=== PATIENT | male | born 1935 | race Caucasian/White ===

== ENCOUNTER 2021-03-06 16:36 | Inpatient (IN) ==
--- NOTE | 2021-03-06 17:31 | Emergency Department Note ---
HPI General Chief complaint: Weakness Stated complaint: Weakness/ Elevated Creatinine Time Seen by Provider: 03/06/21 17:21 Source: patient Mode of arrival: EMS Limitations: no limitations History of Present Illness HPI Narrative: Narrative: The patient is a 85-year-old male who was sent over from an outside medical facility for abnormal lab test. The patient complains of generalized weakness. EMS crew also stated that he had a bloody bowel movement without syncope or chest pain or fevers or shortness of breath. EMS crew reports that he was noted to have a creatinine of 4 and was sent to the emergency department for further evaluation. Related Data Previous Rx's Medication Instructions Recorded docusate sodium 100 mg capsule 100 mg PO TID #90 cap 07/03/19 polyethylene glycol 3350 17 17 g PO QDAY PRN #850 g 07/03/19 gram/dose oral powder tizanidine 2 mg capsule 2 mg PO BID PRN #60 cap 12/09/19 gabapentin 100 mg capsule 100 mg PO QHS #30 cap 06/08/20 warfarin 5 mg tablet 7.5 mg PO QDAY #45 tab 07/02/20 celecoxib 200 mg capsule 200 mg PO QDAY PRN #30 cap 08/18/20 allopurinol 300 mg tablet 300 mg PO QAM #30 tab 11/03/20 oxybutynin chloride 5 mg tablet 5 mg PO QHS PRN #30 tab 11/09/20 primidone 50 mg tablet 200 mg PO QHS #120 tab 12/14/20 carbidopa 10 mg-levodopa 100 mg See Rx Instructions .ROUTE 02/18/21 tablet .COMPLEX #90 tab fludrocortisone 0.1 mg tablet See Rx Instructions .ROUTE 02/24/21 .COMPLEX #15 tab Allergies Allergy/AdvReac Type Severity Reaction Status Date / Time No Known Allergies Allergy Unknown unknown Verified 11/04/20 09:49 Review of Systems ROS ROS Narrative: Narrative: All systems ED: reviewed and negative except as stated. [facility] Narrative Patient History Narrative: Narrative: Medical/Surgical/Family History All Active Problems (Updated 03/06/21 @ 20:54 by Sharad Gupta DO) Acute renal failure (ARF) (Acute) Hematochezia (Acute) Chronic pain of both hips (Acute) Medicare annual wellness visit, subsequent (Acute) History of esophagogastroduodenoscopy (EGD) (Acute 01/20/20) Herpes zoster (Acute) Constipation (Acute) Status post placement of implantable loop recorder (Chronic) Aortic stenosis (Chronic) Dizziness (Chronic) Congestive heart failure (Chronic) Syncope (Chronic) Seizure disorder (Chronic) Hyperlipidemia (Chronic) Peripheral vascular disease with claudication (Chronic) Hypothyroidism (Chronic) Cataract, nuclear sclerotic, both eyes (Chronic) Dermatochalasis (Chronic) Gout (Chronic) Orthostatic hypotension (Chronic) Aortic stenosis, severe (Chronic) Hypertension (Chronic) Parkinsonian tremor (Chronic) Candidiasis of skin (Chronic) Arthritis, lumbar spine (Chronic) Chronic a-fib (Chronic) Postural hypotension (Chronic) Anticoagulated on Coumadin (Chronic) Dehydration (Acute) Medical History (Updated 03/06/21 @ 20:54 by Sharad Gupta DO) Anticoagulated on Coumadin Aortic stenosis Aortic stenosis, severe Arthritis, lumbar spine Candidiasis of skin Cataract, nuclear sclerotic, both eyes Chronic a-fib Congestive heart failure Dermatochalasis Dizziness Gout Hyperlipidemia Hypertension Hypothyroidism Orthostatic hypotension Parkinsonian tremor Peripheral vascular disease with claudication Postural hypotension Seizure disorder Status post placement of implantable loop recorder Can have for up to 2 yrs. Sinus chan with 14 beat run of [place] at 04/25/11 visit. Syncope Surgical History History of cholecystectomy History of esophagogastroduodenoscopy (EGD) (01/20/20) History of heart bypass surgery (~2006) Family History Mother No problems noted. Father No problems noted. Brother No problems noted. Social History Smoking Status: Former smoker Exam Narrative Narrative: Narrative: General Limitations: no limitations General appearance: Present alert Head Head: Present atraumatic and normocephalic Eye Eye: Present normal appearance, PERRL and EOMI ENT ENT: Present normal exam, normal oropharynx and mucous membranes moist Neck Neck: Present normal inspection, full ROM and trachea midline Chest Chest: Present normal inspection and symmetric chest wall rise Respiratory Respiratory: Present normal lung sounds bilaterally Cardiovascular Cardiovascular: Present regular rate and normal rhythm Adbominal Abdominal: Present soft, tenderness and normal bowel sounds; Absent guarding, rebound, organomegaly and pulsatile mass Rectal Rectal: Present heme (+) stool Extremities Extremities: Present normal inspection and full ROM; Absent tenderness Back Back: Present normal inspection and full ROM; Absent tenderness Neurological Neurological: Present alert, oriented X3, CN II-XII intact, normal gait, motor sensory deficit and reflexes normal Psychiatric Psychiatric: Present normal affect Skin Skin: Present warm (WNL); Absent rash Course Course Course Narrative: 85-year-old male noted to be Hemoccult positive after he had a episode of hematochezia. Imaging and labs show acute renal failure. INR is 2. He did have episodes of hematochezia x1. No pain and no active bleeding currently. CT scan shows diverticulosis. EKG interpretation shows, rate 79, NC interval 215, QRS 84, QTc 473, sinus rhythm, normal axis, no acute ST segment elevation or depression, no STEMI, nonspecific EKG. Work-up is consistent with acute renal failure. I spoke with the hospitalist, dr. molina who has agreed to admit this patient. I spoke with the general surgeon who has agreed to evaluate this patient in consultation for hematochezia. Basic facilitated admission orders placed. Vital Signs Vital signs: Vital Signs Temperature 97.3 F 03/06/21 16:37 Pulse Rate 92 H 03/06/21 16:37 Respiratory Rate 18 03/06/21 16:37 Blood Pressure 165/75 03/06/21 16:37 Pulse Oximetry (%) 97 03/06/21 16:37 Temperature 97.3 F 03/06/21 16:37 Pulse Rate 70 03/06/21 20:05 Respiratory Rate 30 H 03/06/21 20:44 Blood Pressure 155/90 03/06/21 19:01 Pulse Oximetry (%) 98 03/06/21 20:05 [facility] Narrative Medical decision making narrative: Narrative: Lab Data Result diagrams: 03/06/21 18:48 03/06/21 18:48 Labs: Lab Results 03/06/21 03/06/21 03/06/21 Range/Units 18:48 18:48 18:48 WBC 10.1 (4.5-11.0) K/mcL RBC 4.50 L (4.63-6.08) M/mcL Hgb 14.3 (13.7-17.5) g/dL Hct 43.5 (40.1-51.0) % MCV 96.7 (80.0-100.0) fL MCH 31.8 (26.0-34.0) pg MCHC 32.9 (31.0-36.0) g/dL RDW 15.8 H (11.5-14.5) % Plt Count 165 (140-440) K/mcL MPV 10.6 H (7.4-10.4) fL Neut % (Auto) 70.5 (38.0-78.0) % Lymph % (Auto) 21.2 (15.5-49.0) % [place] % (Auto) 7.5 (1.0-12.0) % Eos % (Auto) 0.5 (0.0-7.0) % Baso % (Auto) 0.3 (0.0-2.0) % Lymph # (Auto) 2.14 (1.50-4.80) K/mcL [place] # (Auto) 0.76 (0.10-0.90) K/mcL Eos # (Auto) 0.05 (0.00-0.70) K/mcL Baso # (Auto) 0.03 (0.00-0.30) K/mcL Absolute Neutrophils 7.12 (1.80-8.00) K/mcL PT 23.6 H (11.9-14.5) sec INR 2.0 H (0.9-1.1) VBG Lactic Acid (0.5-2.0) mmol/L Sodium 137 (133-145) mmol/L Potassium 4.1 (3.3-5.1) mmol/L Chloride 104 (96-108) mmol/L Carbon Dioxide 20 L (22-30) mmol/L Anion Gap 13.0 (8.0-16.0) BUN 32 H (8-23) mg/dL Creatinine 4.0 H (0.7-1.2) mg/dL GFR Calculation 13 Glucose 87 (70-105) mg/dL Calcium 8.6 (8.6-10.4) mg/dL Total Bilirubin 0.3 (0.1-1.0) mg/dL AST 30 (<40) U/L ALT 12 (<40) U/L Alkaline Phosphatase 97 (39-117) U/L Total Protein 6.7 (5.9-8.4) gm/dL Albumin 3.4 (3.2-5.2) gm/dL Globulin 3.3 (2.2-3.7) gm/dL Albumin/Globulin Ratio 1.0 (1.0-2.3) Lipase 9 (7-60) U/L 03/06/21 Range/Units 18:48 WBC (4.5-11.0) K/mcL RBC (4.63-6.08) M/mcL Hgb (13.7-17.5) g/dL Hct (40.1-51.0) % MCV (80.0-100.0) fL MCH (26.0-34.0) pg MCHC (31.0-36.0) g/dL RDW (11.5-14.5) % Plt Count (140-440) K/mcL MPV (7.4-10.4) fL Neut % (Auto) (38.0-78.0) % Lymph % (Auto) (15.5-49.0) % [place] % (Auto) (1.0-12.0) % Eos % (Auto) (0.0-7.0) % Baso % (Auto) (0.0-2.0) % Lymph # (Auto) (1.50-4.80) K/mcL [place] # (Auto) (0.10-0.90) K/mcL Eos # (Auto) (0.00-0.70) K/mcL Baso # (Auto) (0.00-0.30) K/mcL Absolute Neutrophils (1.80-8.00) K/mcL PT (11.9-14.5) sec INR (0.9-1.1) VBG Lactic Acid 1.2 (0.5-2.0) mmol/L Sodium (133-145) mmol/L Potassium (3.3-5.1) mmol/L Chloride (96-108) mmol/L Carbon Dioxide (22-30) mmol/L Anion Gap (8.0-16.0) BUN (8-23) mg/dL Creatinine (0.7-1.2) mg/dL GFR Calculation Glucose (70-105) mg/dL Calcium (8.6-10.4) mg/dL Total Bilirubin (0.1-1.0) mg/dL AST (<40) U/L ALT (<40) U/L Alkaline Phosphatase (39-117) U/L Total Protein (5.9-8.4) gm/dL Albumin (3.2-5.2) gm/dL Globulin (2.2-3.7) gm/dL Albumin/Globulin Ratio (1.0-2.3) Lipase (7-60) U/L ED POC Tests ED POC Tests: JENNIFER - SARS Antigen Negative Discharge Plan Patient/Caregiver Discharge Instructions Pt seen by [facility]ER/PA only: No Clinical Impression: Acute renal failure (ARF), Hematochezia Patient Disposition: Xfer As Inpt ([facility]) Condition: Serious Follow up with: James New MD [Primary Care Provider] - Prescriptions: No Action docusate sodium [Colace] 100 mg capsule 100 mg PO TID Qty: 90 RF: 12 polyethylene glycol 3350 [Miralax] 17 gram/dose powder 17 g PO QDAY PRN (Reason: constipation) Qty: 850 RF: 12 tizanidine [Zanaflex] 2 mg capsule 2 mg PO BID PRN (Reason: muscle spasticity) Qty: 60 RF: 0 allopurinol 300 mg tablet 300 mg PO QAM Qty: 30 RF: 5 oxybutynin chloride 5 mg tablet 5 mg PO QHS PRN (Reason: bladder spasms) Qty: 30 RF: 5 primidone 50 mg tablet 200 mg PO QHS Qty: 120 RF: 12 carbidopa-levodopa 10-100 mg tablet See Rx Instructions .ROUTE .COMPLEX Qty: 90 RF: 11 fludrocortisone 0.1 mg tablet See Rx Instructions .ROUTE .COMPLEX Qty: 15 RF: 11 gabapentin 100 mg capsule 100 mg PO QHS Qty: 30 RF: 6 warfarin 5 mg tablet 7.5 mg PO QDAY Qty: 45 RF: 12 celecoxib [Celebrex] 200 mg capsule 200 mg PO QDAY PRN (Reason: pain) Qty: 30 RF: 1
[2021-03-06] MEDS ORDERED: 0.9 % SODIUM CHLORIDE 1,000 ML IV ONE (17:38)
--- NOTE | 2021-03-06 18:19 | Cat Scan Report ---
INDICATION: abd pain COMPARISON: Plain film examinations dated 03/06/2021, 07/13/2020 TECHNIQUE: Axial images were obtained through the abdomen and pelvis. Sagittally and coronally reformatted images. FINDINGS: Lung bases:Groundglass infiltrates in the right lower lobe consistent with covid pneumonia. No pleural effusion. No focal mass. There is a small hiatal hernia. Liver:Negative to the limits of noncontrast enhanced examination. Liver contour is smooth without evidence for cirrhosis Gallbladder, bilary:Previous cholecystectomy. No dilated bile ducts. Common bile duct measures 4 mm Spleen:No splenomegaly Pancreas:No pancreatic mass. No peripancreatic abnormality Adrenal glands:Negative Kidneys, ureters, bladder: 14 mm exophytic mass arising from the posterolateral aspects of the mid to lower pole of the right kidney. This is probably a dense cyst. Kidneys are otherwise negative. There is no hydronephrosis. No obstructing or nonobstructing calculi. No hydroureter. No ureteral stone No bladder calculus Gastrointestinal: There is sigmoid colon and descending colon diverticulosis. No evidence for diverticulitis. There is no detectable colonic mass. Transverse colon and ascending colon are somewhat prominent. Transverse colon measures approximately 6 cm in maximum cross-sectional diameter. No evidence for mechanical obstruction. No mechanical small bowel obstruction. No small bowel dilatation. Appendix: The appendix is negative Vascular:There is calcification of the abdominal aorta. There is no abdominal aortic aneurysm. Celiac trunk and superior mesenteric artery appear normal. There is calcification at the origins of both renal arteries. Renal arteries are small bilaterally. Patency is not assessed. Lymphatic:No retroperitoneal adenopathy. No significant mesenteric adenopathy. Mesentery, peritoneum:No free intraperitoneal fluid. No intra-abdominal abscess. No pneumoperitoneum Reproductive:Prostate is enlarged. There are small parenchymal calcifications Musculoskeletal:There is a compression fracture of the L5 vertebral body. Patient has undergone previous kyphoplasty. Other lumbar vertebral body heights are maintained. Sacrum is negative. No insufficiency fracture. No pelvic fracture. Degenerative disease in the hips. No hip fracture. No anterior abdominal wall or inguinal hernia. IMPRESSION: 1. Groundglass infiltrates in the right lower lobe consistent with covid pneumonia 2. Small hiatal hernia 3. Atherosclerotic disease. No abdominal aortic aneurysm 4. Colonic diverticulosis without evidence for diverticulitis 5. Compression fracture of the L5 vertebral body. Previous kyphoplasty The exam was performed using radiation dose optimization techniques including, but not limited to, automated exposure control, adjustment of the mA and/or kV according to patient size and use of iterative reconstruction technique. Interpreted and Authenticated by: Ronni Clark 03/06/21
--- NOTE | 2021-03-06 18:20 | XRay Report ---
INDICATION: weak TECHNIQUE: AP portable upright chest x-ray COMPARISON: Previous examination dated 01/14/2021 FINDINGS:Previous median sternotomy Lungs:Patchy interstitial infiltrates bilaterally consistent with covid pneumonia Heart, vascular:No significant cardiomegaly. Pulmonary vascularity is normal. No pulmonary edema or pulmonary congestion Mediastinum, nic:No mediastinal widening. No hilar mass Pleura:No pleural fluid. No pleural-based mass or calcification Skeletal:Negative. IMPRESSION: Patchy infiltrates bilaterally consistent with covid pneumonia. Interpreted and Authenticated by: Ronni Clark 03/06/21
[2021-03-06 19:19] LABS: Basophils # (Auto) 0.03 K/mcL (0.00-0.30); Basophils % (Auto) 0.3 % (0.0-2.0); Eosinophils # (Auto) 0.05 K/mcL (0.00-0.70); Eosinophils % (Auto) 0.5 % (0.0-7.0); Hematocrit 43.5 % (40.1-51.0); Hemoglobin 14.3 g/dL (13.7-17.5); Lymphocytes # (Auto) 2.14 K/mcL (1.50-4.80); Lymphocytes % (Auto) 21.2 % (15.5-49.0); Mean Cell Volume 96.7 fL (80.0-100.0); Mean Corpuscular HGB Conc 32.9 g/dL (31.0-36.0); Mean Platelet Volume 10.6 fL (7.4-10.4); Monocytes # (Auto) 0.76 K/mcL (0.10-0.90); Monocytes % (Auto) 7.5 % (1.0-12.0); Neutrophils % (Auto) 70.5 % (38.0-78.0); Platelet Count 165 K/mcL (140-440); Red Cell Distribution Width 15.8 % (11.5-14.5); WBC 10.1 K/mcL (4.5-11.0)
[2021-03-06 19:37] LABS: Prothrombin Time 23.6 sec (11.9-14.5)
[2021-03-06 19:38] LABS: ALT/SGPT 12 U/L (<40); AST/SGOT 30 U/L (<40); Albumin 3.4 gm/dL (3.2-5.2); Alkaline Phosphatase 97 U/L (39-117); Bilirubin,Total 0.3 mg/dL (0.1-1.0); Blood Urea Nitrogen 32 mg/dL (8-23); Calcium 8.6 mg/dL (8.6-10.4); Carbon Dioxide 20 mmol/L (22-30); Chloride 104 mmol/L (96-108); Globulin 3.3 gm/dL (2.2-3.7); Glomerular Filtration Rate 13; Glucose 87 mg/dL (70-105)
[2021-03-06] MEDS ORDERED: LIDOCAINE JEL 2% 1 TUBE 5ML TOPICAL ONE (19:41)
--- NOTE | 2021-03-06 20:51 | Internal Med History&Physical ---
HPI History of Present Illness Patient information: Note initiated : 03/06/21 at 8:41 pm Service Date, if different from initiated Date: [] Patient: Db Cox a 85 y/o M admitted on for Weakness/ Elevated Creatinine. Chief Complaint: [] History of present illness: Mr. Cox is a 85 year old M Patient is a poor historian and admittedly has memory issues. He lives with his son who gives him his medications. Patient says he presented to the pulmonary clinic today because he is constipated. At the clinic he was found have a creatinine of 4. Patient was transferred to [facility] ER where he had several bloody bowel movements. Patient believes they were bright red blood. Patient denies any pain medications including NSAIDs but again he does not know his medications and Celebrex is listed on his med list so he does not really know what he has been taking. Other than the constipation he has not been feeling ill or weak and has been urinating normally. He had a CT abdomen pelvis in the ED which was unremarkable including not showing any hydronephrosis or stones. Per the medical records he had a outpatient kyphoplasty of L5 on the . I wonder if he has been taking pain medications including anti-inflammatories but again the patient has no idea what he is taking. Review of Systems: Pertinent positives as above. Denies headache/fever/chills/nausea/vomiting/chest or abdominal pain/cough/dyspnea/diarrhea. Remaining 10 point review of system reviewed negative PFSH PFSH All Active Problems (Updated 03/06/21 @ 20:54 by Sharad Gupta DO) Acute renal failure (ARF) (Acute) Hematochezia (Acute) Chronic pain of both hips (Acute) Medicare annual wellness visit, subsequent (Acute) History of esophagogastroduodenoscopy (EGD) (Acute 01/20/20) Herpes zoster (Acute) Constipation (Acute) Status post placement of implantable loop recorder (Chronic) Aortic stenosis (Chronic) Dizziness (Chronic) Congestive heart failure (Chronic) Syncope (Chronic) Seizure disorder (Chronic) Hyperlipidemia (Chronic) Peripheral vascular disease with claudication (Chronic) Hypothyroidism (Chronic) Cataract, nuclear sclerotic, both eyes (Chronic) Dermatochalasis (Chronic) Gout (Chronic) Orthostatic hypotension (Chronic) Aortic stenosis, severe (Chronic) Hypertension (Chronic) Parkinsonian tremor (Chronic) Candidiasis of skin (Chronic) Arthritis, lumbar spine (Chronic) Chronic a-fib (Chronic) Postural hypotension (Chronic) Anticoagulated on Coumadin (Chronic) Dehydration (Acute) Medical History (Updated 03/06/21 @ 20:54 by Sharad Gupta DO) Anticoagulated on Coumadin Aortic stenosis Aortic stenosis, severe Arthritis, lumbar spine Candidiasis of skin Cataract, nuclear sclerotic, both eyes Chronic a-fib Congestive heart failure Dermatochalasis Dizziness Gout Hyperlipidemia Hypertension Hypothyroidism Orthostatic hypotension Parkinsonian tremor Peripheral vascular disease with claudication Postural hypotension Seizure disorder Status post placement of implantable loop recorder Can have for up to 2 yrs. Sinus chan with 14 beat run of [place] at 04/25/11 visit. Syncope Surgical History History of cholecystectomy History of esophagogastroduodenoscopy (EGD) (01/20/20) History of heart bypass surgery (~2006) Family History Mother No problems noted. Father No problems noted. Brother No problems noted. Social History marital status: occupational status: other details: riley leisure activities: hunting and fishing MEDS/ALLERGIES Home Medications and Allergies Home Medications Medication Instructions Recorded Confirmed Type docusate sodium 100 mg capsule 100 mg PO TID #90 cap 07/03/19 03/06/21 Rx polyethylene glycol 3350 17 17 g PO QDAY PRN #850 g 07/03/19 03/06/21 Rx gram/dose oral powder tizanidine 2 mg capsule 2 mg PO BID PRN #60 cap 12/09/19 11/04/20 Rx gabapentin 100 mg capsule 100 mg PO QHS #30 cap 06/08/20 11/04/20 Rx warfarin 5 mg tablet 7.5 mg PO QDAY #45 tab 07/02/20 03/06/21 Rx celecoxib 200 mg capsule 200 mg PO QDAY PRN #30 cap 08/18/20 11/04/20 Rx allopurinol 300 mg tablet 300 mg PO QAM #30 tab 11/03/20 03/06/21 Rx oxybutynin chloride 5 mg tablet 5 mg PO QHS PRN #30 tab 11/09/20 03/06/21 Rx primidone 50 mg tablet 200 mg PO QHS #120 tab 12/14/20 03/06/21 Rx carbidopa 10 mg-levodopa 100 mg See Rx Instructions .ROUTE 02/18/21 03/06/21 Rx tablet .COMPLEX #90 tab fludrocortisone 0.1 mg tablet See Rx Instructions .ROUTE 02/24/21 03/06/21 Rx .COMPLEX #15 tab Allergies Allergy/AdvReac Type Severity Reaction Status Date / Time No Known Allergies Allergy Unknown unknown Verified 11/04/20 09:49 EXAM Constitutional Vitals: Temp Pulse Resp BP Pulse Ox 97.3 F 70 18 155/90 98 03/06/21 16:37 03/06/21 20:05 03/06/21 20:05 03/06/21 19:01 03/06/21 20:05 Exam: General: Alert, Awake, No acute Distress Eyes/N/T: EOMI, PERRL, dry MM Head/Neck: neck supple, normocephalic atraumatic CV: RRR, No murmurs, normal s1/s2 Pulm: Clear b/l, no wheezing/rhonchi/rales Abd: soft, nontender, +BS x4 Ext: no clubbing/cyanosis, trace b/l LE edema Neuro: Alert, no focal deficits, moves all extremities, CN 2-12 grossly intact, symmetrical strength b/l upper/lower, sensations intact b/l upper/lower. has memory issues Skin: warm/dry DATA Data Completed and Pending Labs: Labs from last 24 hours 03/06/21 03/06/21 03/06/21 20:24 18:48 18:48 WBC RBC Hgb Hct MCV MCH MCHC RDW Plt Count MPV Neut % (Auto) Lymph % (Auto) [place] % (Auto) Eos % (Auto) Baso % (Auto) Lymph # (Auto) [place] # (Auto) Eos # (Auto) Baso # (Auto) Absolute Neutrophils PT INR VBG Lactic Acid 1.2 Sodium 137 Potassium 4.1 Chloride 104 Carbon Dioxide 20 L Anion Gap 13.0 BUN 32 H Creatinine 4.0 H GFR Calculation 13 Glucose 87 Calcium 8.6 Total Bilirubin 0.3 AST 30 ALT 12 Alkaline Phosphatase 97 Total Protein 6.7 Albumin 3.4 Globulin 3.3 Albumin/Globulin Ratio 1.0 Lipase 9 Urine Color Pending Urine Appearance Pending Urine pH Pending Ur Specific [place] Pending Urine Protein Pending Urine Glucose (UA) Pending Urine Ketones Pending Urine Occult Blood Pending Urine Nitrate Pending Urine Bilirubin Pending Urine Urobilinogen Pending Ur Leukocyte Esterase Pending 03/06/21 03/06/21 18:48 18:48 WBC 10.1 RBC 4.50 L Hgb 14.3 Hct 43.5 MCV 96.7 MCH 31.8 MCHC 32.9 RDW 15.8 H Plt Count 165 MPV 10.6 H Neut % (Auto) 70.5 Lymph % (Auto) 21.2 [place] % (Auto) 7.5 Eos % (Auto) 0.5 Baso % (Auto) 0.3 Lymph # (Auto) 2.14 [place] # (Auto) 0.76 Eos # (Auto) 0.05 Baso # (Auto) 0.03 Absolute Neutrophils 7.12 PT 23.6 H INR 2.0 H VBG Lactic Acid Sodium Potassium Chloride Carbon Dioxide Anion Gap BUN Creatinine GFR Calculation Glucose Calcium Total Bilirubin AST ALT Alkaline Phosphatase Total Protein Albumin Globulin Albumin/Globulin Ratio Lipase Urine Color Urine Appearance Urine pH Ur Specific [place] Urine Protein Urine Glucose (UA) Urine Ketones Urine Occult Blood Urine Nitrate Urine Bilirubin Urine Urobilinogen Ur Leukocyte Esterase A/P Narrative A/P Narrative: A: *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
[2021-03-06] MEDS ORDERED: ONDANSETRON 4 MG/2 ML VIAL IV PRN ×2 (20:54→22:17)
[2021-03-06] MEDS ORDERED: SENNOSIDES 1 TABLET PO SCH (21:00)
[2021-03-06 22:06] LABS: Appearance,Urine CLEAR (Clear); Bilirubin,Urine Negative (Negative); Color,Urine YELLOW; Culture Indicated,Urine No; Glucose,Urine (UA) Negative (Negative); Ketones,Urine Negative (Negative); Leukocyte Esterase,Urine Negative /uL (Negative); Mucus,Urine FEW /hpf; Nitrate,Urine Negative (Negative); Protein,Urine Negative (Negative); Specific Gravity,Urine 1.006 (1.000-1.035); Urine Blood 0.03 mg/dL (Negative); Urine RBC 1 /hpf (0-3); Urine Squamous Epithelial Cell 0 /hpf (0-4); Urine WBC 1 /hpf (0-4); Urobilinogen,Urine Negative
[2021-03-06] MEDS ORDERED: POTASSIUM CHLORIDE 40 MEQ in DEXTROSE 5% IN WATER 500 ML IV PRN (22:17)
[2021-03-06] MEDS ORDERED: POLYETHYLENE GLYCOL 3350 17 GM PACKET PO PRN (22:17)
[2021-03-06] MEDS ORDERED: MAGNESIUM SULFATE 2 GM/50 ML BAG IV PRN (22:17)
[2021-03-06] MEDS ORDERED: hydrALAZINE 20 MG/ML VIAL IV PRN (22:17)
[2021-03-06] MEDS ORDERED: METOPROLOL TARTRATE 5 MG/5 ML VIAL IV PRN (22:17)
[2021-03-06] MEDS ORDERED: IPRATROPIUM/ALBUTEROL 3 ML AMPUL.NEB NEB PRN (22:17)
[2021-03-06] MEDS ORDERED: SENNOSIDES 1 TABLET PO PRN (22:17)
[2021-03-06] MEDS ORDERED: LABETALOL 5 MG/ML ML IV PRN (22:17)
[2021-03-06] MEDS ORDERED: ACETAMINOPHEN 325 MG TABLET PO PRN (22:17)
[2021-03-06] MEDS ORDERED: POTASSIUM CHLORIDE 20 MEQ TABLET PO PRN ×2 (22:17)
[2021-03-06] MEDS: 0.9 % SODIUM CHLORIDE 1,000 ML IV SCH ×3 (22:33→22:40)
[2021-03-06] MEDS: 0.9 % SODIUM CHLORIDE 10 ML SYRINGE IV SCH ×2 (22:39→22:46)
[2021-03-06] MEDS: DOCUSATE SODIUM 100 MG CAPSULE PO SCH (22:40)
[2021-03-06] MEDS: PRIMIDONE 50 MG TABLET PO SCH (23:30)
[2021-03-07] MEDS: 0.9 % SODIUM CHLORIDE 1,000 ML IV SCH ×3 (06:00→18:47)
[2021-03-07] MEDS: 0.9 % SODIUM CHLORIDE 10 ML SYRINGE IV SCH ×4 (06:01→21:06)
[2021-03-07 06:19] LABS: Basophils # (Auto) 0.02 K/mcL (0.00-0.30); Basophils % (Auto) 0.3 % (0.0-2.0); Eosinophils # (Auto) 0.14 K/mcL (0.00-0.70); Eosinophils % (Auto) 2.4 % (0.0-7.0); Hemoglobin 12.9 g/dL (13.7-17.5); Lymphocytes # (Auto) 1.44 K/mcL (1.50-4.80); Lymphocytes % (Auto) 25.1 % (15.5-49.0); Mean Cell Volume 95.7 fL (80.0-100.0); Mean Corpuscular HGB Conc 33.9 g/dL (31.0-36.0); Mean Platelet Volume 10.4 fL (7.4-10.4); Monocytes # (Auto) 0.46 K/mcL (0.10-0.90); Neutrophils % (Auto) 64.2 % (38.0-78.0); Platelet Count 150 K/mcL (140-440); RBC 3.97 M/mcL (4.63-6.08); Red Cell Distribution Width 15.3 % (11.5-14.5); WBC 5.7 K/mcL (4.5-11.0)
[2021-03-07 06:33] LABS: ALT/SGPT 10 U/L (<40); AST/SGOT 22 U/L (<40); Albumin 2.9 gm/dL (3.2-5.2); Albumin/Globulin Ratio 1.1 (1.0-2.3); Alkaline Phosphatase 84 U/L (39-117); Bilirubin,Direct < 0.2 mg/dL (0-0.3); Bilirubin,Total 0.3 mg/dL (0.1-1.0); Blood Urea Nitrogen 32 mg/dL (8-23); Calcium 8.3 mg/dL (8.6-10.4); Carbon Dioxide 23 mmol/L (22-30); Chloride 108 mmol/L (96-108); Globulin 2.7 gm/dL (2.2-3.7); Glomerular Filtration Rate 13; Glucose 81 mg/dL (70-105); Lactate Dehydrogenase 269 U/L (135-225); Phosphorous 4.2 mg/dL (2.5-4.5); Triglycerides 102 mg/dL (<150)
--- NOTE | 2021-03-07 07:36 | Internal Med Progress Note ---
SUBJECTIVE Subjective Patient information: Note initiated : 03/07/21 at 7:27 am Service Date, if different from initiated Date: [] Patient: Db Cox a 85 y/o M admitted on 03/06/21 for Weakness/ Elevated Creatinine. Chief Complaint: [] Interval history: History of present illness: Mr. Cox is a 85 year old M Patient is a poor historian and admittedly has memory issues. He lives with his son who gives him his medications. Patient says he presented to the pulmonary clinic today because he is constipated. At the clinic he was found have a creatinine of 4. Patient was transferred to [facility] ER where he had several bloody bowel movements. Patient believes they were bright red blood. Patient denies any pain medications including NSAIDs but again he does not know his medications and Celebrex is listed on his med list so he does not really know what he has been taking. Other than the constipation he has not been feeling ill or weak and has been urinating normally. He had a CT abdomen pelvis in the ED which was unremarkable including not showing any hydronephrosis or stones. Per the medical records he had a outpatient kyphoplasty of L5 on the . I wonder if he has been taking pain medications including anti-inflammatories but again the patient has no idea what he is taking. 03/07 Patient sleeping but easily arousable. No new complaints. Creatinine similar to yesterday. Has urine output. Review of Systems: denies headache/fever/chills/nausea/vomiting/chest or abdominal pain/cough/dyspnea/diarrhea. Otherwise see above. Constitutional Vitals: Vital Signs Temp Pulse Resp BP Pulse Ox 97.5 F 62 16 105/68 95 03/07/21 03:40 03/07/21 03:40 03/07/21 03:40 03/07/21 03:40 03/07/21 03:40 Period Temp Pulse Resp BP Sys/Sneed Pulse Ox Last 24 Hr 97.3 F-98.7 F 62-92 15-30 105-166/68-113 92-98 Intake and Output 03/06/21 03/07/21 03/07/21 21:59 05:59 13:59 Intake Total 1000 525 Output Total 1075 450 Balance 1000 -550 -450 Weight 99.337 kg 84.867 kg Intake & Output: Intake & Output 03/06/21 03/07/21 03/07/21 21:59 05:59 13:59 Intake Total 1000 525 Output Total 1075 450 Balance 1000 -550 -450 Weight 99.337 kg 84.867 kg Intake: IV 1000 Sodium Chloride 0.9% 1,000 ml @ 1000 Wide Open IV BOLUS ONE Rx#: [id number] Oral 525 Output: Urine Catheter Amount 1075 450 Other: Urine Appearance Clear Clear Uretheral (Gracia) Clear Clear Urine Color Bright Yellow Bright Yellow Uretheral (Gracia) Pale Bright Yellow Bright Yellow Urine Odor Normal Uretheral (Gracia) Normal Stool Size Small Small Stool Color Brown Brown Blood Tinged Stool Consistency Soft Soft # Bowel Movements 1 Exam: General: Alert, Awake, No acute Distress Eyes/N/T: EOMI, Head/Neck: neck supple, CV: RRR, 2/6 SM Pulm: Clear b/l, no wheezing/rhonchi/rales Abd: soft, nontender, +BS x4 Ext: no clubbing/cyanosis, trace b/l LE edema Neuro: Alert, no focal deficits, moves all extremities, has memory issues Skin: warm/dry OBJ DATA Labs CBC & Chem 7: 03/07/21 05:25 03/07/21 05:25 Labs: Abnormal Lab Results 03/07/21 03/07/21 03/06/21 05:25 05:25 20:24 RBC 3.97 L Hgb 12.9 L Hct 38.0 L RDW 15.3 H MPV Lymph # (Auto) 1.44 L PT INR Carbon Dioxide BUN 32 H Creatinine 3.9 H Calcium 8.3 L Lactate Dehydrogenase 269 H Total Protein 5.6 L Albumin 2.9 L Urine Mucus Few A 03/06/21 03/06/21 03/06/21 18:48 18:48 18:48 RBC 4.50 L Hgb Hct RDW 15.8 H MPV 10.6 H Lymph # (Auto) PT 23.6 H INR 2.0 H Carbon Dioxide 20 L BUN 32 H Creatinine 4.0 H Calcium Lactate Dehydrogenase Total Protein Albumin Urine Mucus Meds: Medications Acetaminophen (Acetaminophen 325 Mg Tablet) 650 mg PO Q6HP PRN PRN Reason: PAIN/FEVER > 101 Albuterol/Ipratropium (Ipratropium/Albuterol 3 Ml Ampul.Neb) 3 ml NEB Q4HP PRN PRN Reason: Shortness Of Breath Carbidopa/Levodopa (Carbidopa/Levodopa 10/100 Tablet) 0 tab PO .COMPLEX LACEY Docusate Sodium (Docusate Sodium 100 Mg Capsule) 100 mg PO BID [facility] Last Admin: 03/06/21 22:40 Dose: Not Given Documented by: Hydralazine HCl (Hydralazine 20 Mg/Ml Vial) 0 mg IV Q2HP PRN PRN Reason: Hypertension Sodium Chloride (Sodium Chloride 0.9%) 1,000 mls @ 125 mls/hr IV .Q8H [facility] Last Admin: 03/07/21 06:00 Dose: Not Given Documented by: Potassium Chloride 40 meq/ (Dextrose) 520 mls @ 130 mls/hr IV UD PRN PRN Reason: Potassium < 3 Magnesium Sulfate (Magnesium Sulfate) 2 gm in 50 mls @ 50 mls/hr IV UD PRN PRN Reason: Magnesium </= 1.6 Sodium Chloride (Sodium Chloride 0.9%) 1,000 mls @ 100 mls/hr IV .Q10H [facility] Last Admin: 03/06/21 22:34 Dose: 100 mls/hr Documented by: Labetalol HCl (Labetalol 5 Mg/Ml Ml) 0 mg IV Q2HP PRN PRN Reason: Hypertension Metoprolol Tartrate (Metoprolol Tartrate 5 Mg/5 Ml Vial) 5 mg IV Q2HP PRN PRN Reason: Tachyarrhythmias HR>110 Ondansetron HCl (Ondansetron 4 Mg/2 Ml Vial) 4 mg IV Q6HP PRN PRN Reason: Nausea And Vomiting Ondansetron HCl (Ondansetron 4 Mg/2 Ml Vial) 4 mg IV Q4HP PRN PRN Reason: Nausea And Vomiting Pantoprazole Sodium (Pantoprazole 40 Mg Tablet) 40 mg PO QAMAC [facility] Polyethylene Glycol (Polyethylene Glycol 3350 17 Gm Packet) 17 gm PO DAILYP PRN PRN Reason: Constipation Potassium Chloride (Potassium Chloride 20 Meq Tablet) 40 meq PO UD PRN PRN Reason: Potssium is 3-3.5 Potassium Chloride (Potassium Chloride 20 Meq Tablet) 40 meq PO UD PRN PRN Reason: Potassium < 3 Primidone (Primidone 50 Mg Tablet) 200 mg PO QHS [facility] Last Admin: 03/06/21 23:30 Dose: 200 mg Documented by: Senna (Sennosides 1 Tablet) 2 tab PO HS [facility] Last Admin: 03/06/21 22:40 Dose: Not Given Documented by: Senna (Sennosides 1 Tablet) 2 tab PO DAILYP PRN PRN Reason: Constipation Sodium Chloride (0.9 % Sodium Chloride 10 Ml Syringe) 10 ml IV Q8 [facility] Last Admin: 03/07/21 06:01 Dose: Not Given Documented by: Sodium Chloride (0.9 % Sodium Chloride 10 Ml Syringe) 10 ml IV Q8 [facility] Last Admin: 03/06/21 22:39 Dose: 10 ml Documented by: A/P Narrative A/P Narrative: A: *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: likely 2/2 ATN> ?etiology, ?NAIDS (celebrex) -3.9<4.0 -UOP good, FENa >1% *Lower GI bleed: on warfarin with INR 2 *Recent kyphoplasty: possibly has been taking NSAIDS *Parkinson's with 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
[2021-03-07] MEDS: CARBIDOPA/LEVODOPA 10/100 TABLET PO SCH ×4 (08:39→17:25)
[2021-03-07] MEDS: ALLOPURINOL 100 MG TABLET PO SCH (08:40)
[2021-03-07] MEDS: PANTOPRAZOLE 40 MG TABLET PO SCH (08:40)
[2021-03-07 08:41] LABS: INR 2.1 (0.9-1.1); Prothrombin Time 24.7 sec (11.9-14.5)
[2021-03-07] MEDS: DOCUSATE SODIUM 100 MG CAPSULE PO SCH ×2 (09:54→21:05)
[2021-03-07] MEDS ORDERED: PEG 3350/NA SULF,BICARB,CL/KCL 4,000 ML ORAL.SOL PO ONE (10:22)
--- NOTE | 2021-03-07 10:22 | General Surgery Consult Note ---
HPI Data of Consult Patient: new to practice Consult date: 03/07/21 Primary Care Provider: James New MD Consult Narrative Patient Information: Note initiated : 03/07/21 at 10:16 am Service Date, if different from initiated Date: [] Patient: Db Cox 85 y/o M admitted on 03/06/21 for Weakness/ Elevated Creatinine. Patient presented to renal yesterday, elevated renal function test was transferred to the hospital. Upon presentation the hospital he did report that he had several bright red blood per rectum. He does not know when his last colonoscopy was, he has had multiple EGDs over the last several years due to dysphagia and food boluses. I was asked to see the patient to perform EGD and colonoscopy to evaluate for cause of blood per rectum. Chief Complaint: [] Chief complaint: Blood per rectum cc:: CC: Allan Prieto Review of Systems Review of systems: Negative other than above PFSH PFSH All Active Problems Blood per rectum (Acute) Acute renal failure (ARF) (Acute) Hematochezia (Acute) Chronic pain of both hips (Acute) Medicare annual wellness visit, subsequent (Acute) History of esophagogastroduodenoscopy (EGD) (Acute 01/20/20) Herpes zoster (Acute) Constipation (Acute) Status post placement of implantable loop recorder (Chronic) Aortic stenosis (Chronic) Dizziness (Chronic) Congestive heart failure (Chronic) Syncope (Chronic) Seizure disorder (Chronic) Hyperlipidemia (Chronic) Peripheral vascular disease with claudication (Chronic) Hypothyroidism (Chronic) Cataract, nuclear sclerotic, both eyes (Chronic) Dermatochalasis (Chronic) Gout (Chronic) Orthostatic hypotension (Chronic) Aortic stenosis, severe (Chronic) Hypertension (Chronic) Parkinsonian tremor (Chronic) Candidiasis of skin (Chronic) Arthritis, lumbar spine (Chronic) Chronic a-fib (Chronic) Postural hypotension (Chronic) Anticoagulated on Coumadin (Chronic) Dehydration (Acute) Medical History Anticoagulated on Coumadin Aortic stenosis Aortic stenosis, severe Arthritis, lumbar spine Candidiasis of skin Cataract, nuclear sclerotic, both eyes Chronic a-fib Congestive heart failure Dermatochalasis Dizziness Gout Hyperlipidemia Hypertension Hypothyroidism Orthostatic hypotension Parkinsonian tremor Peripheral vascular disease with claudication Postural hypotension Seizure disorder Status post placement of implantable loop recorder Can have for up to 2 yrs. Sinus chan with 14 beat run of [place] at 04/25/11 visit. Syncope Surgical History History of cholecystectomy History of esophagogastroduodenoscopy (EGD) (01/20/20) History of heart bypass surgery (~2006) Family History Mother No problems noted. Father No problems noted. Brother No problems noted. Social History marital status: occupational status: other details: riley leisure activities: hunting and fishing MEDS/ALLERGIES Home Medications and Allergies Home Medications Medication Instructions Recorded Confirmed Type docusate sodium 100 mg capsule 100 mg PO TID #90 cap 07/03/19 03/07/21 Rx polyethylene glycol 3350 17 17 g PO QDAY PRN #850 g 07/03/19 03/06/21 Rx gram/dose oral powder tizanidine 2 mg capsule 2 mg PO BID PRN #60 cap 12/09/19 11/04/20 Rx gabapentin 100 mg capsule 100 mg PO QHS #30 cap 06/08/20 11/04/20 Rx warfarin 5 mg tablet 7.5 mg PO QDAY #45 tab 07/02/20 03/07/21 Rx celecoxib 200 mg capsule 200 mg PO QDAY PRN #30 cap 08/18/20 11/04/20 Rx allopurinol 300 mg tablet 300 mg PO QAM #30 tab 11/03/20 03/06/21 Rx oxybutynin chloride 5 mg tablet 5 mg PO QHS PRN #30 tab 11/09/20 03/07/21 Rx primidone 50 mg tablet 200 mg PO QHS #120 tab 12/14/20 03/07/21 Rx carbidopa 10 mg-levodopa 100 mg See Rx Instructions .ROUTE 02/18/21 03/06/21 Rx tablet .COMPLEX #90 tab fludrocortisone 0.1 mg tablet See Rx Instructions .ROUTE 02/24/21 03/07/21 Rx .COMPLEX #15 tab Allergies Allergy/AdvReac Type Severity Reaction Status Date / Time No Known Allergies Allergy Unknown unknown Verified 11/04/20 09:49 Physical Examination Vital Signs Vital signs: Temp Pulse Resp BP Pulse Ox 97.2 F 62 20 155/74 93 03/07/21 07:27 03/07/21 03:40 03/07/21 07:27 03/07/21 07:27 03/07/21 07:27 General physical appearance General physical exam: well developed, well nourished and no distress Eyes Eye exam: PERRL and normal ocular movement ENT ENT exam: normal pinna, normal nares, normal mucosa, no hearing loss and no congestion Head Head exam IM: Present atraumatic and normocephalic Neck Neck exam: no masses, no bruits, trachea midline, no lymphadenopathy and no venous distension Cardiovascular Cardiovascular exam IM: Present normal rate and rhythm Respiratory Respiratory exam: normal expansion, normal respiratory effort, clear to percussion and clear to auscultation Abdomen Abdomen: Present soft, non tender and bowel sounds Hernia: Present none Genitourinary Genitourinary (Male): Present normal penis with no external lesions Rectum Rectum: Present normal sphincter tone, no hemorrhoids, no tenderness, no masses and no bleeding Integumentary Integumentary: Present no rash, no growths and no abnormal pigmentation Neurologic Neurologic: Present normal coordination and normal sensation Musculoskeletal Musculoskeletal: Present normal gait and normal posture Psychiatric Psychiatric: Present oriented to time, oriented to person, oriented to place, speech is normal and memory intact Results Labs Result diagrams: 03/07/21 05:25 03/07/21 05:25 Labs: Abnormal lab results 03/06/21 03/06/21 03/06/21 Range/Units 18:48 18:48 18:48 RBC 4.50 L (4.63-6.08) M/mcL Hgb (13.7-17.5) g/dL Hct (40.1-51.0) % RDW 15.8 H (11.5-14.5) % MPV 10.6 H (7.4-10.4) fL Lymph # (Auto) (1.50-4.80) K/mcL PT 23.6 H (11.9-14.5) sec INR 2.0 H (0.9-1.1) Carbon Dioxide 20 L (22-30) mmol/L BUN 32 H (8-23) mg/dL Creatinine 4.0 H (0.7-1.2) mg/dL Calcium (8.6-10.4) mg/dL Lactate Dehydrogenase (135-225) U/L Total Protein (5.9-8.4) gm/dL Albumin (3.2-5.2) gm/dL Urine Mucus (None) /hpf 03/06/21 03/07/21 03/07/21 Range/Units 20:24 05:25 05:25 RBC 3.97 L (4.63-6.08) M/mcL Hgb 12.9 L (13.7-17.5) g/dL Hct 38.0 L (40.1-51.0) % RDW 15.3 H (11.5-14.5) % MPV (7.4-10.4) fL Lymph # (Auto) 1.44 L (1.50-4.80) K/mcL PT (11.9-14.5) sec INR (0.9-1.1) Carbon Dioxide (22-30) mmol/L BUN 32 H (8-23) mg/dL Creatinine 3.9 H (0.7-1.2) mg/dL Calcium 8.3 L (8.6-10.4) mg/dL Lactate Dehydrogenase 269 H (135-225) U/L Total Protein 5.6 L (5.9-8.4) gm/dL Albumin 2.9 L (3.2-5.2) gm/dL Urine Mucus Few A (None) /hpf 03/07/21 Range/Units 07:40 RBC (4.63-6.08) M/mcL Hgb (13.7-17.5) g/dL Hct (40.1-51.0) % RDW (11.5-14.5) % MPV (7.4-10.4) fL Lymph # (Auto) (1.50-4.80) K/mcL PT 24.7 H (11.9-14.5) sec INR 2.1 H (0.9-1.1) Carbon Dioxide (22-30) mmol/L BUN (8-23) mg/dL Creatinine (0.7-1.2) mg/dL Calcium (8.6-10.4) mg/dL Lactate Dehydrogenase (135-225) U/L Total Protein (5.9-8.4) gm/dL Albumin (3.2-5.2) gm/dL Urine Mucus (None) /hpf Diabetes panel 03/06/21 03/07/21 Range/Units 18:48 05:25 Sodium 137 139 (133-145) mmol/L Potassium 4.1 4.1 (3.3-5.1) mmol/L Chloride 104 108 (96-108) mmol/L Carbon Dioxide 20 L 23 (22-30) mmol/L BUN 32 H 32 H (8-23) mg/dL Creatinine 4.0 H 3.9 H (0.7-1.2) mg/dL Glucose 87 81 (70-105) mg/dL Calcium 8.6 8.3 L (8.6-10.4) mg/dL AST 30 22 (<40) U/L ALT 12 10 (<40) U/L Alkaline Phosphatase 97 84 (39-117) U/L Total Protein 6.7 5.6 L (5.9-8.4) gm/dL Albumin 3.4 2.9 L (3.2-5.2) gm/dL Triglycerides 102 (<150) mg/dL Calcium panel 03/06/21 03/07/21 Range/Units 18:48 05:25 Calcium 8.6 8.3 L (8.6-10.4) mg/dL Phosphorus 4.2 (2.5-4.5) mg/dL Albumin 3.4 2.9 L (3.2-5.2) gm/dL Pituitary panel 03/06/21 03/07/21 Range/Units 18:48 05:25 Sodium 137 139 (133-145) mmol/L Potassium 4.1 4.1 (3.3-5.1) mmol/L Chloride 104 108 (96-108) mmol/L Carbon Dioxide 20 L 23 (22-30) mmol/L BUN 32 H 32 H (8-23) mg/dL Creatinine 4.0 H 3.9 H (0.7-1.2) mg/dL Glucose 87 81 (70-105) mg/dL Calcium 8.6 8.3 L (8.6-10.4) mg/dL Adrenal panel 03/06/21 03/07/21 Range/Units 18:48 05:25 Sodium 137 139 (133-145) mmol/L Potassium 4.1 4.1 (3.3-5.1) mmol/L Chloride 104 108 (96-108) mmol/L Carbon Dioxide 20 L 23 (22-30) mmol/L BUN 32 H 32 H (8-23) mg/dL Creatinine 4.0 H 3.9 H (0.7-1.2) mg/dL Glucose 87 81 (70-105) mg/dL Calcium 8.6 8.3 L (8.6-10.4) mg/dL Total Bilirubin 0.3 0.3 (0.1-1.0) mg/dL AST 30 22 (<40) U/L ALT 12 10 (<40) U/L Alkaline Phosphatase 97 84 (39-117) U/L Total Protein 6.7 5.6 L (5.9-8.4) gm/dL Albumin 3.4 2.9 L (3.2-5.2) gm/dL All other labs normal. A/P Assessment and plan (1) Acute renal failure (ARF): Status: Acute Qualifiers: Acute renal failure type: unspecified Qualified Code(s): N17.9 - Acute kidney failure, unspecified (2) Blood per rectum: Status: Acute Narrative A/P Narrative: This is a pleasant 85-year-old gentleman who presents with possible GI bleed. Risk, benefits, alternatives to work-up discussed with him at length including EGD and colonoscopy. Plan: I will add him on for a EGD and colonoscopy tomorrow, prep today. Time Spent With Patient Time: Total time spent is greater than 50% in coordination of care (as documented) at patient's floor/unit and/or counseling patient:
--- NOTE | 2021-03-07 13:04 | EKG ---
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
[2021-03-07] MEDS: PRIMIDONE 50 MG TABLET PO SCH (21:05)
[2021-03-08] MEDS: 0.9 % SODIUM CHLORIDE 1,000 ML IV SCH (04:43)
[2021-03-08] MEDS: 0.9 % SODIUM CHLORIDE 10 ML SYRINGE IV SCH ×3 (04:59→20:55)
[2021-03-08] MEDS ORDERED: FLEETS ADULT ENEMA PR PRN (06:37)
[2021-03-08 07:12] LABS: Hematocrit 39.9 % (40.1-51.0); Hemoglobin 13.2 g/dL (13.7-17.5)
--- NOTE | 2021-03-08 07:17 | Internal Med Progress Note ---
SUBJECTIVE Subjective Patient information: Note initiated : 03/08/21 at 7:15 am Service Date, if different from initiated Date: [] Patient: Db Cox a 85 y/o M admitted on 03/06/21 for Weakness/ Elevated Creatinine. Chief Complaint: [] Interval history: History of present illness: Mr. Cox is a 85 year old M Patient is a poor historian and admittedly has memory issues. He lives with his son who gives him his medications. Patient says he presented to the pulmonary clinic today because he is constipated. At the clinic he was found have a creatinine of 4. Patient was transferred to [facility] ER where he had several bloody bowel movements. Patient believes they were bright red blood. Patient denies any pain medications including NSAIDs but again he does not know his medications and Celebrex is listed on his med list so he does not really know what he has been taking. Other than the constipation he has not been feeling ill or weak and has been urinating normally. He had a CT abdomen pelvis in the ED which was unremarkable including not showing any hydronephrosis or stones. Per the medical records he had a outpatient kyphoplasty of L5 on the . I wonder if he has been taking pain medications including anti-inflammatories but again the patient has no idea what he is taking. 03/07 Patient sleeping but easily arousable. No new complaints. Creatinine similar to yesterday. Has urine output. 03/08 Patient slept well no overnight events. Had colonoscopy this morning which showed diverticulosis no active bleeding. He had an EGD which was unremarkable. Creatinine start in the improved. Review of Systems: denies headache/fever/chills/nausea/vomiting/chest or abdominal pain/cough/dyspnea/diarrhea. Otherwise see above. Constitutional Vitals: Vital Signs Temp Pulse Resp BP Pulse Ox 97.2 F 73 20 131/69 92 03/08/21 04:00 03/08/21 04:00 03/08/21 04:00 03/08/21 04:00 03/08/21 04:00 Period Temp Pulse Resp BP Sys/Sneed Pulse Ox Last 24 Hr 97.0 F-97.7 F 66-73 16-20 119-155/69-83 92-97 Intake and Output 03/07/21 03/08/21 03/08/21 21:59 05:59 13:59 Intake Total 1200 5393 Output Total 2975 725 Balance -1775 4668 Weight 84.368 kg Intake & Output: Intake & Output 03/07/21 03/08/21 03/08/21 21:59 05:59 13:59 Intake Total 1200 5393 Output Total 2975 725 Balance -1775 4668 Weight 84.368 kg Intake: IV 1000 993 Sodium Chloride 0.9% 1,000 ml @ 1000 993 100 mls/hr IV .Q10H [facility] Rx#: [id number] Oral 200 4400 Output: Urine Catheter Amount 2975 725 Other: Meal Dinner Percent of Meal Consumed 75% Feeding Ability Independent Urine Appearance Clear Clear Uretheral ([place]) Clear Urine Color Pale Bright Yellow Uretheral ([facility]) Pale Urine Odor Uretheral ([facility]) Normal Stool Size Moderate Stool Color Brown Pale Stool Consistency Liquid Watery # Bowel Movements 1 # of times incontinent of 1 Bowels Exam: General: Alert, Awake, No acute Distress Eyes/N/T: EOMI, Head/Neck: neck supple, CV: RRR, 2/6 SM Pulm: Clear b/l, no wheezing/rhonchi/rales Abd: soft, nontender, +BS x4 Ext: no clubbing/cyanosis, trace b/l LE edema Neuro: Alert, no focal deficits, moves all extremities, has memory issues Skin: warm/dry OBJ DATA Labs CBC & Chem 7: 03/08/21 05:32 03/08/21 05:32 Labs: Abnormal Lab Results 03/08/21 03/07/21 03/07/21 05:32 07:40 05:25 RBC Hgb 13.2 L Hct 39.9 L RDW MPV Lymph # (Auto) PT 24.7 H INR 2.1 H Carbon Dioxide BUN 32 H Creatinine 3.9 H Calcium 8.3 L Lactate Dehydrogenase 269 H Total Protein 5.6 L Albumin 2.9 L Urine Mucus 03/07/21 03/06/21 03/06/21 05:25 20:24 18:48 RBC 3.97 L Hgb 12.9 L Hct 38.0 L RDW 15.3 H MPV Lymph # (Auto) 1.44 L PT INR Carbon Dioxide 20 L BUN 32 H Creatinine 4.0 H Calcium Lactate Dehydrogenase Total Protein Albumin Urine Mucus Few A 03/06/21 03/06/21 18:48 18:48 RBC 4.50 L Hgb Hct RDW 15.8 H MPV 10.6 H Lymph # (Auto) PT 23.6 H INR 2.0 H Carbon Dioxide BUN Creatinine Calcium Lactate Dehydrogenase Total Protein Albumin Urine Mucus Meds: Medications Acetaminophen (Acetaminophen 325 Mg Tablet) 650 mg PO Q6HP PRN PRN Reason: PAIN/FEVER > 101 Albuterol/Ipratropium (Ipratropium/Albuterol 3 Ml Ampul.Neb) 3 ml NEB Q4HP PRN PRN Reason: Shortness Of Breath Allopurinol (Allopurinol 100 Mg Tablet) 100 mg PO DAILY [facility] Last Admin: 03/07/21 08:40 Dose: 100 mg Documented by: Carbidopa/Levodopa (Carbidopa/Levodopa 10/100 Tablet) 1 tab PO TIDCC [facility] Last Admin: 03/07/21 17:25 Dose: 1 tab Documented by: Docusate Sodium (Docusate Sodium 100 Mg Capsule) 100 mg PO BID [facility] Last Admin: 03/07/21 21:05 Dose: 100 mg Documented by: Fludrocortisone Acetate (Fludrocortisone 0.1 Mg Tablet) 0.1 mg PO MoWeFr@[id number] [facility] Hydralazine HCl (Hydralazine 20 Mg/Ml Vial) 0 mg IV Q2HP PRN PRN Reason: Hypertension Potassium Chloride 40 meq/ (Dextrose) 520 mls @ 130 mls/hr IV UD PRN PRN Reason: Potassium < 3 Magnesium Sulfate (Magnesium Sulfate) 2 gm in 50 mls @ 50 mls/hr IV UD PRN PRN Reason: Magnesium </= 1.6 Sodium Chloride (Sodium Chloride 0.9%) 1,000 mls @ 100 mls/hr IV .Q10H [facility] Last Admin: 03/08/21 04:43 Dose: 100 mls/hr Documented by: Labetalol HCl (Labetalol 5 Mg/Ml Ml) 0 mg IV Q2HP PRN PRN Reason: Hypertension Metoprolol Tartrate (Metoprolol Tartrate 5 Mg/5 Ml Vial) 5 mg IV Q2HP PRN PRN Reason: Tachyarrhythmias HR>110 Ondansetron HCl (Ondansetron 4 Mg/2 Ml Vial) 4 mg IV Q4HP PRN PRN Reason: Nausea And Vomiting Pantoprazole Sodium (Pantoprazole 40 Mg Tablet) 40 mg PO QAMAC [facility] Last Admin: 03/07/21 08:40 Dose: 40 mg Documented by: Polyethylene Glycol (Polyethylene Glycol 3350 17 Gm Packet) 17 gm PO DAILYP PRN PRN Reason: Constipation Potassium Chloride (Potassium Chloride 20 Meq Tablet) 40 meq PO UD PRN PRN Reason: Potssium is 3-3.5 Potassium Chloride (Potassium Chloride 20 Meq Tablet) 40 meq PO UD PRN PRN Reason: Potassium < 3 Primidone (Primidone 50 Mg Tablet) 200 mg PO QHS [facility] Last Admin: 03/07/21 21:05 Dose: 200 mg Documented by: Senna (Sennosides 1 Tablet) 2 tab PO DAILYP PRN PRN Reason: Constipation Last Admin: 03/07/21 21:05 Dose: 2 tab Documented by: Sodium Biphosphate/Sodium Phosphate (Fleets Adult Enema) 2 dose IA DAILYP PRN PRN Reason: Constipation Last Admin: 03/08/21 06:49 Dose: 2 dose Documented by: Sodium Chloride (0.9 % Sodium Chloride 10 Ml Syringe) 10 ml IV Q8 [facility] Last Admin: 03/08/21 04:59 Dose: Not Given Documented by: A/P Narrative A/P Narrative: A: *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: likely 2/2 ATN> ?etiology, ?NAIDS (celebrex) -3.9<4.0 -UOP good, FENa >1% *Lower GI bleed: likely 2/2 diverticulosis -warfarin *Recent kyphoplasty: possibly has been taking NSAIDS *Parkinson's with 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
[2021-03-08] MEDS ORDERED: PROPOFOL 200 MG/20 ML VIAL IV ONE (07:21)
[2021-03-08] MEDS ORDERED: DEXAMETHASONE 10 MG/ML VIAL ONE (07:21)
[2021-03-08] MEDS ORDERED: ONDANSETRON 4 MG/2 ML VIAL ONE (07:21)
[2021-03-08] MEDS ORDERED: GLYCOPYRROLATE 0.2 MG/ML VIAL IV ONE (07:21)
[2021-03-08] MEDS ORDERED: LIDOCAINE HCL/PF 100 MG/5 ML SYRINGE IV ONE (07:21)
[2021-03-08 07:43] LABS: Blood Urea Nitrogen 28 mg/dL (8-23); Calcium 8.2 mg/dL (8.6-10.4); Carbon Dioxide 25 mmol/L (22-30); Chloride 106 mmol/L (96-108); Glomerular Filtration Rate 17; Glucose 74 mg/dL (70-105)
[2021-03-08] MEDS ORDERED: IPRATROPIUM/ALBUTEROL 3 ML AMPUL.NEB NEB PRN (07:54)
[2021-03-08] MEDS ORDERED: ONDANSETRON 4 MG/2 ML VIAL IV PRN (07:54)
[2021-03-08] MEDS ORDERED: LACTATED RINGERS 1,000 ML IV SCH (08:00)
[2021-03-08 08:09] LABS: INR 1.8 (0.9-1.1); Prothrombin Time 21.3 sec (11.9-14.5)
--- NOTE | 2021-03-08 08:35 | EGD Procedure Note ---
EGD Procedure Notes Procedure Information Patient information: Note initiated : 03/08/21 at 8:34 am Service Date: 03/06/21 Patient: Db Cox 85 y/o M admitted on 03/06/21 for Weakness/ Elevated Creatinine. Pre-op diagnosis general: Possible GI bleed Post-Op Diagnosis general: Same Procedure: Esophogogastroduodenoscopy Procedure Narrative: After risk benefits and alternatives to the procedure were discussed with the patient at length he verbalized understanding and desire to continue with the procedure. Patient was taken to endoscopy. Surgical timeout was taken to verify patient and procedure being performed sedation was administered by anesthesia. An adult gastroscope was entered and advanced under direct vision into the second portion of the duodenum. The antrum was fully inspected, the scope was retroflexed in the stomach. Full examination revealed normal scope. The GE junction was at 35 cm and the esophagus was normal on full exam. Patient tolerated procedure well. Assessment: No evidence of GI bleed
--- NOTE | 2021-03-08 08:36 | Colonoscopy Procedure Note ---
Colonoscopy Procedure Notes Procedure Information Patient information: Note initiated : 03/08/21 at 8:35 am Service Date: 03/06/21 Patient: Db Cox 85 y/o M admitted on 03/06/21 for Weakness/ Elevated Creatinine. Pre-op diagnosis general: Possible GI bleed Post-op diagnosis general: Hemorrhoids Procedure: Colonoscopy Procedure narrative: After risk benefits and alternatives to the procedure were discussed with the patient at length he verbalized understanding and desire to continue with the procedure. Patient was taken to endoscopy and placed supine on the endoscopy table. Conscious sedation was administered throughout the case by anesthesia. Digital rectal exam was performed which was within normal limits. An adult colonoscope was advanced under direct vision to the cecum which was identified by the deering's foot, the appendiceal orifice and opening to the terminal ileum. Full exam upon removal of scope was significant for scattered diverticulosis throughout the colon. Withdraw time was >8 min. Retroflexion in the rectum was within normal limits.
[2021-03-08] MEDS ORDERED: 0.9 % SODIUM CHLORIDE 1,000 ML IV SCH (09:01)
[2021-03-08] MEDS: PANTOPRAZOLE 40 MG TABLET PO SCH (09:33)
[2021-03-08] MEDS: ALLOPURINOL 100 MG TABLET PO SCH (09:57)
[2021-03-08] MEDS: CARBIDOPA/LEVODOPA 10/100 TABLET PO SCH ×3 (09:57→16:43)
[2021-03-08] MEDS: FLUDROCORTISONE 0.1 MG TABLET PO SCH (09:59)
--- NOTE | 2021-03-08 10:10 | Discharge Summary ---
Discharge Provider Provider Patient information: Note initiated : 03/08/21 at 10:09 am Service Date, if different from initiated Date: [] Patient: Db Cox 85 y/o M admitted on 03/06/21 for Weakness/ Elevated Creatinine. Chief Complaint: [] Date of admission: 03/06/21 22:08 Discharge date: 03/10/21 Primary care physician: James New MD Consults: 03/06/21 Consult to Physician [CONS] Stat Comment: Consulting Provider: Allan Prieto Reason For Exam: Physician to Consult Discharge Meds Discharge Medications Home Medications docusate sodium 100 mg capsule 100 mg PO TID #90 cap 07/03/19 [Rx Confirmed 03/07/21 Last Taken 03/05/21 09:00] polyethylene glycol 3350 17 gram/dose oral powder 17 g PO QDAY PRN #850 g 07/03/19 [Rx Confirmed 03/06/21 Last Taken Unknown] warfarin 5 mg tablet 7.5 mg PO QDAY #45 tab 07/02/20 [Rx Confirmed 03/07/21 Last Taken 03/05/21 09:00] allopurinol 300 mg tablet 300 mg PO QAM #30 tab 11/03/20 [Rx Confirmed 03/06/21 Last Taken 03/05/21 09:00] oxybutynin chloride 5 mg tablet 5 mg PO QHS PRN #30 tab 11/09/20 [Rx Confirmed 03/07/21 Last Taken 03/05/21 19:00] primidone 50 mg tablet 200 mg PO QHS #120 tab 12/14/20 [Rx Confirmed 03/07/21 Last Taken 03/05/21 19:00] carbidopa 10 mg-levodopa 100 mg tablet See Rx Instructions .ROUTE .COMPLEX #90 tab 02/18/21 [Rx Confirmed 03/06/21 Last Taken 03/05/21 19:00] fludrocortisone 0.1 mg tablet See Rx Instructions .ROUTE .COMPLEX #15 tab 02/24/21 [Rx Confirmed 03/07/21 Last Taken 03/05/21 09:00] tramadol 50 mg PO Q4H PRN 03/08/21 [History Confirmed 03/08/21 Last Taken Unknown] COURSE Hospital Course Hospital course: Interval history: History of present illness: Mr. Cox is a 85 year old M Patient is a poor historian and admittedly has memory issues. He lives with his son who gives him his medications. Patient says he presented to the pulmonary clinic today because he is constipated. At the clinic he was found have a creatinine of 4. Patient was transferred to [facility] ER where he had several bloody bowel movements. Patient believes they were bright red blood. Patient denies any pain medications including NSAIDs but again he does not know his medications and Celebrex is listed on his med list so he does not really know what he has been taking. Other than the constipation he has not been feeling ill or weak and has been urinating normally. He had a CT abdomen pelvis in the ED which was unremarkable including not showing any hydronephrosis or stones. Per the medical records he had a outpatient kyphoplasty of L5 on the . I wonder if he has been taking pain medications including anti-inflammatories but again the patient has no idea what he is taking. 03/07 Patient sleeping but easily arousable. No new complaints. Creatinine similar to yesterday. Has urine output. 03/08 Patient slept well no overnight events. Had colonoscopy this morning which showed diverticulosis no active bleeding. He had an EGD which was unremarkable. Creatinine start in the improved. 03/09 Patient says he is feeling well. No overnight events or new complaints. Awaiting morning labs. 03/10 Feeling well. No overnight event or new complaints. Creatinine down to two. 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 fib adrenal insufficiency Time Spent with Patient Time attestation: Total time spent providing and/or coordinating discharge services: Time spent: Greater than 30 minutes EXAM Constitutional Vitals: Temp Pulse Resp BP Pulse Ox 98.0 F 67 14 141/54 98 03/08/21 08:08 03/08/21 08:08 03/08/21 08:08 03/08/21 08:08 03/08/21 08:08 Discharge Data Data Completed and Pending Labs on day of discharge: Labs from last 24 hours 03/08/21 03/08/21 03/08/21 05:32 05:32 05:32 Hgb 13.2 L Hct 39.9 L PT 21.3 H INR 1.8 H Sodium 144 Potassium 4.1 Chloride 106 Carbon Dioxide 25 Anion Gap 13.0 BUN 28 H Creatinine 3.1 H GFR Calculation 17 Glucose 74 Calcium 8.2 L Preliminary micro results at discharge 03/06/21 18:48 Blood Culture - Preliminary Blood 03/06/21 18:18 Blood Culture - Preliminary Blood Discharge Plan Patient/Caregiver Discharge Instructions Activity: increase activity as tolerated Diet: Cardiac Prescriptions: Continued docusate sodium [Colace] 100 mg capsule 100 mg PO TID Qty: 90 RF: 12 polyethylene glycol 3350 [Miralax] 17 gram/dose powder 17 g PO QDAY PRN (Reason: constipation) Qty: 850 RF: 12 allopurinol 300 mg tablet 300 mg PO QAM Qty: 30 RF: 5 oxybutynin chloride 5 mg tablet 5 mg PO QHS PRN (Reason: bladder spasms) Qty: 30 RF: 5 primidone 50 mg tablet 200 mg PO QHS Qty: 120 RF: 12 carbidopa-levodopa 10-100 mg tablet See Rx Instructions .ROUTE .COMPLEX Qty: 90 RF: 11 fludrocortisone 0.1 mg tablet See Rx Instructions .ROUTE .COMPLEX Qty: 15 RF: 11 warfarin 5 mg tablet 7.5 mg PO QDAY Qty: 45 RF: 12 tramadol 50 mg Tablet 50 mg PO Q4H PRN (Reason: Pain) RF: 0 Other Ambulatory Orders: Basic Metabolic Panel (Routine) Timeframe: 3 Days Facility: [facility] - Location: Laboratory Ordered By: Allan Prieto Follow Up Plan Follow up with: James New MD [Primary Care Provider] - Patient Disposition: Home Health Service Prognosis: Undetermined Overall status at discharge: patient is progressing back to baseline Discharge Orders: Discharge Order (Routine); Ordered 03/10/21 Ordered By: Allan Preito QUALITY VTE Deep Vein Thrombosis/Pulmonary Embolism Present on Admission: No
[2021-03-08] MEDS: DOCUSATE SODIUM 100 MG CAPSULE PO SCH ×2 (10:11→20:55)
[2021-03-08] MEDS: PRIMIDONE 50 MG TABLET PO SCH (20:54)
[2021-03-09] MEDS: 0.9 % SODIUM CHLORIDE 10 ML SYRINGE IV SCH ×3 (06:22→20:16)
--- NOTE | 2021-03-09 07:28 | Internal Med Progress Note ---
SUBJECTIVE Subjective Patient information: Note initiated : 03/09/21 at 7:25 am Service Date, if different from initiated Date: [] Patient: Db Cox a 85 y/o M admitted on 03/06/21 for Weakness/ Elevated Creatinine. Chief Complaint: [] Interval history: History of present illness: Mr. Cox is a 85 year old M Patient is a poor historian and admittedly has memory issues. He lives with his son who gives him his medications. Patient says he presented to the pulmonary clinic today because he is constipated. At the clinic he was found have a creatinine of 4. Patient was transferred to [facility] ER where he had several bloody bowel movements. Patient believes they were bright red blood. Patient denies any pain medications including NSAIDs but again he does not know his medications and Celebrex is listed on his med list so he does not really know what he has been taking. Other than the constipation he has not been feeling ill or weak and has been urinating normally. He had a CT abdomen pelvis in the ED which was unremarkable including not showing any hydronephrosis or stones. Per the medical records he had a outpatient kyphoplasty of L5 on the . I wonder if he has been taking pain medications including anti-inflammatories but again the patient has no idea what he is taking. 03/07 Patient sleeping but easily arousable. No new complaints. Creatinine similar to yesterday. Has urine output. 03/08 Patient slept well no overnight events. Had colonoscopy this morning which showed diverticulosis no active bleeding. He had an EGD which was unremarkable. Creatinine start in the improved. 03/09 Patient says he is feeling well. No overnight events or new complaints. Awaiting morning labs. Review of Systems: denies headache/fever/chills/nausea/vomiting/chest or abdominal pain/cough/dyspnea/diarrhea. Otherwise see above. Constitutional Vitals: Vital Signs Temp Pulse Resp BP Pulse Ox 98.7 F 77 14 146/81 94 03/09/21 03:05 03/09/21 03:05 03/09/21 03:05 03/09/21 03:05 03/09/21 03:05 Period Temp Pulse Resp BP Sys/Sneed Pulse Ox Last 24 Hr 97.7 F-98.7 F 65-86 14-18 131-162/54-95 91-98 Intake and Output 03/08/21 03/09/21 03/09/21 21:59 05:59 13:59 Intake Total 2019 550 Output Total 2353 1051 Balance -333 -501 Weight 84.867 kg Intake & Output: Intake & Output 03/08/21 03/09/21 03/09/21 21:59 05:59 13:59 Intake Total 2019 550 Output Total 2353 1051 Balance -333 -501 Weight 84.867 kg Intake: Oral 2019 Output: Void Amount 0 1050 # of times incontinent of urine 3 1 Other: Meal Dinner Percent of Meal Consumed 75% Feeding Ability Assist with Tray Set Up Urine Appearance Clear Clear Urine Color Bright Yellow Bright Yellow Stool Size Large Stool Color Brown Stool Consistency Liquid # Bowel Movements 2 # of times incontinent of 3 Bowels Exam: General: Alert, Awake, No acute Distress Eyes/N/T: EOMI, Head/Neck: neck supple, CV: irreg irreg, 2/6 SM Pulm: Clear b/l, no wheezing/rhonchi/rales Abd: soft, nontender, +BS x4 Ext: no clubbing/cyanosis, trace b/l LE edema Neuro: Alert, no focal deficits, moves all extremities, has memory issues Skin: warm/dry OBJ DATA Labs CBC & Chem 7: 03/09/21 06:08 03/08/21 05:32 Labs: Abnormal Lab Results 03/08/21 03/08/21 03/08/21 05:32 05:32 05:32 RBC Hgb 13.2 L Hct 39.9 L RDW MPV Lymph # (Auto) PT 21.3 H INR 1.8 H Carbon Dioxide BUN 28 H Creatinine 3.1 H Calcium 8.2 L Lactate Dehydrogenase Total Protein Albumin Urine Mucus 03/07/21 03/07/21 03/07/21 07:40 05:25 05:25 RBC 3.97 L Hgb 12.9 L Hct 38.0 L RDW 15.3 H MPV Lymph # (Auto) 1.44 L PT 24.7 H INR 2.1 H Carbon Dioxide BUN 32 H Creatinine 3.9 H Calcium 8.3 L Lactate Dehydrogenase 269 H Total Protein 5.6 L Albumin 2.9 L Urine Mucus 03/06/21 03/06/21 03/06/21 20:24 18:48 18:48 RBC Hgb Hct RDW MPV Lymph # (Auto) PT 23.6 H INR 2.0 H Carbon Dioxide 20 L BUN 32 H Creatinine 4.0 H Calcium Lactate Dehydrogenase Total Protein Albumin Urine Mucus Few A 03/06/21 18:48 RBC 4.50 L Hgb Hct RDW 15.8 H MPV 10.6 H Lymph # (Auto) PT INR Carbon Dioxide BUN Creatinine Calcium Lactate Dehydrogenase Total Protein Albumin Urine Mucus Meds: Medications Acetaminophen (Acetaminophen 325 Mg Tablet) 650 mg PO Q6HP PRN PRN Reason: PAIN/FEVER > 101 Last Admin: 03/09/21 01:05 Dose: 650 mg Documented by: Albuterol/Ipratropium (Ipratropium/Albuterol 3 Ml Ampul.Neb) 3 ml NEB Q4HP PRN PRN Reason: Shortness Of Breath Allopurinol (Allopurinol 100 Mg Tablet) 100 mg PO DAILY [facility] Last Admin: 03/08/21 09:57 Dose: 100 mg Documented by: Carbidopa/Levodopa (Carbidopa/Levodopa 10/100 Tablet) 1 tab PO TIDCC [facility] Last Admin: 03/08/21 16:43 Dose: 1 tab Documented by: Docusate Sodium (Docusate Sodium 100 Mg Capsule) 100 mg PO BID [facility] Last Admin: 03/08/21 20:55 Dose: Not Given Documented by: Fludrocortisone Acetate (Fludrocortisone 0.1 Mg Tablet) 0.1 mg PO MoWeFr@0900 [facility] Last Admin: 03/08/21 09:59 Dose: 0.1 mg Documented by: Hydralazine HCl (Hydralazine 20 Mg/Ml Vial) 0 mg IV Q2HP PRN PRN Reason: Hypertension Potassium Chloride 40 meq/ (Dextrose) 520 mls @ 130 mls/hr IV UD PRN PRN Reason: Potassium < 3 Magnesium Sulfate (Magnesium Sulfate) 2 gm in 50 mls @ 50 mls/hr IV UD PRN PRN Reason: Magnesium </= 1.6 Labetalol HCl (Labetalol 5 Mg/Ml Ml) 0 mg IV Q2HP PRN PRN Reason: Hypertension Metoprolol Tartrate (Metoprolol Tartrate 5 Mg/5 Ml Vial) 5 mg IV Q2HP PRN PRN Reason: Tachyarrhythmias HR>110 Ondansetron HCl (Ondansetron 4 Mg/2 Ml Vial) 4 mg IV Q4HP PRN PRN Reason: Nausea And Vomiting Pantoprazole Sodium (Pantoprazole 40 Mg Tablet) 40 mg PO QAMAC [facility] Last Admin: 03/08/21 09:33 Dose: Not Given Documented by: Polyethylene Glycol (Polyethylene Glycol 3350 17 Gm Packet) 17 gm PO DAILYP PRN PRN Reason: Constipation Potassium Chloride (Potassium Chloride 20 Meq Tablet) 40 meq PO UD PRN PRN Reason: Potssium is 3-3.5 Potassium Chloride (Potassium Chloride 20 Meq Tablet) 40 meq PO UD PRN PRN Reason: Potassium < 3 Primidone (Primidone 50 Mg Tablet) 200 mg PO QHS [facility] Last Admin: 03/08/21 20:54 Dose: 200 mg Documented by: Senna (Sennosides 1 Tablet) 2 tab PO DAILYP PRN PRN Reason: Constipation Last Admin: 03/07/21 21:05 Dose: 2 tab Documented by: Sodium Biphosphate/Sodium Phosphate (Fleets Adult Enema) 2 dose [place] DAILYP PRN PRN Reason: Constipation Last Admin: 03/08/21 06:49 Dose: 2 dose Documented by: Sodium Chloride (0.9 % Sodium Chloride 10 Ml Syringe) 10 ml IV Q8 [facility] Last Admin: 03/09/21 06:22 Dose: Not Given Documented by: A/P Narrative A/P Narrative: A: *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: likely 2/2 ATN> ?etiology, ?NAIDS (celebrex) -2.6<<4.0 -UOP good, FENa >1% *Lower GI bleed: likely 2/2 diverticulosis - *Recent kyphoplasty: possibly has been taking NSAIDS *Parkinson's with likely underlying developing Dementia: On Sinemet *?Dementia: *h/o Sz's: *aortic stenosis: *CAD w/cabg: *PAFib: on warfarin *Adrenal insufficiency: On fludrocortisone P: -f/u renal fxn, - -shah in place -cont home medications -pt/ot -ppx: SCD (restart warfarin without bridging) DNR Time Spent With Patient Time: Total time spent is greater than 50% in coordination of care (as documented) at patient's floor/unit and/or counseling patient: QUALITY VTE Deep Vein Thrombosis/Pulmonary Embolism Present on Admission: No
[2021-03-09 08:20] LABS: Hematocrit 39.4 % (40.1-51.0); Hemoglobin 13.7 g/dL (13.7-17.5)
[2021-03-09 08:24] LABS: Blood Urea Nitrogen 33 mg/dL (8-23); Calcium 8.8 mg/dL (8.6-10.4); Carbon Dioxide 25 mmol/L (22-30); Chloride 103 mmol/L (96-108); Glomerular Filtration Rate 21; Glucose 92 mg/dL (70-105)
[2021-03-09] MEDS ORDERED: OXYBUTYNIN CHLORIDE 5 MG TABLET PO PRN (08:25)
[2021-03-09] MEDS ORDERED: traMADol 50 MG TABLET PO PRN (08:25)
[2021-03-09] MEDS ORDERED: 0.9 % SODIUM CHLORIDE 500 ML IV SCH (08:30)
[2021-03-09 08:47] LABS: INR 1.3 (0.9-1.1); Prothrombin Time 16.4 sec (11.9-14.5)
[2021-03-09] MEDS: ALLOPURINOL 100 MG TABLET PO SCH (10:16)
[2021-03-09] MEDS: PANTOPRAZOLE 40 MG TABLET PO SCH (10:16)
[2021-03-09] MEDS: CARBIDOPA/LEVODOPA 10/100 TABLET PO SCH ×3 (10:16→17:50)
[2021-03-09] MEDS: DOCUSATE SODIUM 100 MG CAPSULE PO SCH ×2 (10:37→20:07)
[2021-03-09] MEDS ORDERED: WARFARIN 7.5 MG TABLET PO ONE (14:00)
[2021-03-09] MEDS: PRIMIDONE 50 MG TABLET PO SCH (20:05)
[2021-03-10 07:31] LABS: Prothrombin Time 14.1 sec (11.9-14.5)
--- NOTE | 2021-03-10 07:31 | Internal Med Progress Note ---
SUBJECTIVE Subjective Patient information: Note initiated : 03/10/21 at 7:30 am Service Date, if different from initiated Date: [] Patient: Db Cox a 85 y/o M admitted on 03/06/21 for Weakness/ Elevated Creatinine. Chief Complaint: [] Interval history: History of present illness: Mr. Cox is a 85 year old M Patient is a poor historian and admittedly has memory issues. He lives with his son who gives him his medications. Patient says he presented to the pulmonary clinic today because he is constipated. At the clinic he was found have a creatinine of 4. Patient was transferred to [facility] ER where he had several bloody bowel movements. Patient believes they were bright red blood. Patient denies any pain medications including NSAIDs but again he does not know his medications and Celebrex is listed on his med list so he does not really know what he has been taking. Other than the constipation he has not been feeling ill or weak and has been urinating normally. He had a CT abdomen pelvis in the ED which was unremarkable including not showing any hydronephrosis or stones. Per the medical records he had a outpatient kyphoplasty of L5 on the . I wonder if he has been taking pain medications including anti-inflammatories but again the patient has no idea what he is taking. 03/07 Patient sleeping but easily arousable. No new complaints. Creatinine similar to yesterday. Has urine output. 03/08 Patient slept well no overnight events. Had colonoscopy this morning which showed diverticulosis no active bleeding. He had an EGD which was unremarkable. Creatinine start in the improved. 03/09 Patient says he is feeling well. No overnight events or new complaints. Awaiting morning labs. 03/10 Feeling well. No overnight event or new complaints. Creatinine down to two. Review of Systems: denies headache/fever/chills/nausea/vomiting/chest or abdominal pain/cough/dyspnea/diarrhea. Otherwise see above. Constitutional Vitals: Vital Signs Temp Pulse Resp BP Pulse Ox 98.8 F 74 20 137/77 92 03/10/21 02:44 03/10/21 02:44 03/10/21 02:44 03/10/21 02:44 03/10/21 02:44 Period Temp Pulse Resp BP Sys/Sneed Pulse Ox Last 24 Hr 97.4 F-98.8 F 60-84 100-146/64-77 92-96 Intake and Output 03/09/21 03/10/21 03/10/21 21:59 05:59 13:59 Intake Total 650 125 Output Total 779 653 Balance -129 -528 Weight 85.094 kg Intake & Output: Intake & Output 03/09/21 03/10/21 03/10/21 21:59 05:59 13:59 Intake Total 650 125 Output Total 779 653 Balance -129 -528 Weight 85.094 kg Intake: IV 500 Sodium Chloride 0.9% 500 ml @ 500 75 mls/hr IV .Q6H40M [facility] Rx#: [id number] Oral 150 125 Output: Void Amount 775 650 # of times incontinent of urine 4 3 Other: Meal Lunch Percent of Meal Consumed 75% Feeding Ability Assist with Tray Set Up Urine Appearance Clear Clear Urine Color Pale Bright Yellow Urine Odor Normal Stool Size Small Stool Color Brown Stool Consistency Loose # Voids 1 Exam: General: Alert, Awake, No acute Distress Eyes/N/T: EOMI, Head/Neck: neck supple, CV: irreg irreg, 2/6 SM Pulm: Clear b/l, no wheezing/rhonchi/rales Abd: soft, nontender, +BS x4 Ext: no clubbing/cyanosis, trace b/l LE edema Neuro: Alert, no focal deficits, moves all extremities, has memory issues Skin: warm/dry OBJ DATA Labs CBC & Chem 7: 03/09/21 06:08 03/10/21 05:59 Labs: Abnormal Lab Results 03/09/21 03/09/21 03/09/21 06:09 06:08 06:08 Hgb Hct 39.4 L PT 16.4 H INR 1.3 H BUN 33 H Creatinine 2.6 H Calcium 03/08/21 03/08/21 03/08/21 05:32 05:32 05:32 Hgb 13.2 L Hct 39.9 L PT 21.3 H INR 1.8 H BUN 28 H Creatinine 3.1 H Calcium 8.2 L 03/07/21 07:40 Hgb Hct PT 24.7 H INR 2.1 H BUN Creatinine Calcium Meds: Medications Acetaminophen (Acetaminophen 325 Mg Tablet) 650 mg PO Q6HP PRN PRN Reason: PAIN/FEVER > 101 Last Admin: 03/09/21 01:05 Dose: 650 mg Documented by: Albuterol/Ipratropium (Ipratropium/Albuterol 3 Ml Ampul.Neb) 3 ml NEB Q4HP PRN PRN Reason: Shortness Of Breath Allopurinol (Allopurinol 100 Mg Tablet) 100 mg PO DAILY [facility] Last Admin: 03/09/21 10:16 Dose: 100 mg Documented by: Carbidopa/Levodopa (Carbidopa/Levodopa 10/100 Tablet) 1 tab PO TIDCC [facility] Last Admin: 03/09/21 17:50 Dose: 1 tab Documented by: Docusate Sodium (Docusate Sodium 100 Mg Capsule) 100 mg PO BID [facility] Last Admin: 03/09/21 20:07 Dose: Not Given Documented by: Fludrocortisone Acetate (Fludrocortisone 0.1 Mg Tablet) 0.1 mg PO MoWeFr@0900 [facility] Last Admin: 03/08/21 09:59 Dose: 0.1 mg Documented by: Hydralazine HCl (Hydralazine 20 Mg/Ml Vial) 0 mg IV Q2HP PRN PRN Reason: Hypertension Potassium Chloride 40 meq/ (Dextrose) 520 mls @ 130 mls/hr IV UD PRN PRN Reason: Potassium < 3 Magnesium Sulfate (Magnesium Sulfate) 2 gm in 50 mls @ 50 mls/hr IV UD PRN PRN Reason: Magnesium </= 1.6 Labetalol HCl (Labetalol 5 Mg/Ml Ml) 0 mg IV Q2HP PRN PRN Reason: Hypertension Metoprolol Tartrate (Metoprolol Tartrate 5 Mg/5 Ml Vial) 5 mg IV Q2HP PRN PRN Reason: Tachyarrhythmias HR>110 Ondansetron HCl (Ondansetron 4 Mg/2 Ml Vial) 4 mg IV Q4HP PRN PRN Reason: Nausea And Vomiting Oxybutynin Chloride (Oxybutynin Chloride 5 Mg Tablet) 5 mg PO QHS PRN PRN Reason: bladder spasms Pantoprazole Sodium (Pantoprazole 40 Mg Tablet) 40 mg PO QAMAC [facility] Last Admin: 03/09/21 10:16 Dose: 40 mg Documented by: Polyethylene Glycol (Polyethylene Glycol 3350 17 Gm Packet) 17 gm PO DAILYP PRN PRN Reason: Constipation Potassium Chloride (Potassium Chloride 20 Meq Tablet) 40 meq PO UD PRN PRN Reason: Potssium is 3-3.5 Potassium Chloride (Potassium Chloride 20 Meq Tablet) 40 meq PO UD PRN PRN Reason: Potassium < 3 Primidone (Primidone 50 Mg Tablet) 200 mg PO QHS [facility] Last Admin: 03/09/21 20:05 Dose: 200 mg Documented by: Senna (Sennosides 1 Tablet) 2 tab PO DAILYP PRN PRN Reason: Constipation Last Admin: 03/07/21 21:05 Dose: 2 tab Documented by: Sodium Biphosphate/Sodium Phosphate (Fleets Adult Enema) [address] DAILYP PRN PRN Reason: Constipation Last Admin: 03/08/21 06:49 Dose: 2 dose Documented by: Sodium Chloride (0.9 % Sodium Chloride 10 Ml Syringe) 10 ml IV Q8 [facility] Last Admin: 03/09/21 20:16 Dose: 10 ml Documented by: Tramadol HCl (Tramadol 50 Mg Tablet) 50 mg PO Q4H PRN; Protocol PRN Reason: Pain Warfarin Sodium (Warfarin Per Pharmacy) 1 order PO UD [facility] A/P Narrative A/P Narrative: A: *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: likely 2/2 ATN> ?etiology, ?NAIDS (celebrex) -2.0<<<4.0 -UOP good, FENa >1% *Lower GI bleed: likely 2/2 diverticulosis - *Recent kyphoplasty: possibly has been taking NSAIDS *Parkinson's with likely underlying developing Dementia: On Sinemet *?Dementia: *h/o Sz's: *Aortic stenosis: *CAD w/cabg: *PAFib: on warfarin *Adrenal insufficiency: On fludrocortisone P: -f/u renal fxn, - -d/c'd shah -cont home medications -pt/ot -ppx: SCD (restart warfarin without bridging) DNR Time Spent With Patient Time: Total time spent is greater than 50% in coordination of care (as documented) at patient's floor/unit and/or counseling patient: QUALITY VTE Deep Vein Thrombosis/Pulmonary Embolism Present on Admission: No
[2021-03-10] MEDS: 0.9 % SODIUM CHLORIDE 10 ML SYRINGE IV SCH ×3 (07:38→12:23)
[2021-03-10 08:20] LABS: Blood Urea Nitrogen 37 mg/dL (8-23); Calcium 8.7 mg/dL (8.6-10.4); Carbon Dioxide 27 mmol/L (22-30); Chloride 102 mmol/L (96-108); Glomerular Filtration Rate 29; Glucose 91 mg/dL (70-105)
[2021-03-10] MEDS: PANTOPRAZOLE 40 MG TABLET PO SCH (08:23)
[2021-03-10] MEDS: CARBIDOPA/LEVODOPA 10/100 TABLET PO SCH ×2 (08:23→12:06)
[2021-03-10] MEDS: DOCUSATE SODIUM 100 MG CAPSULE PO SCH (08:23)
[2021-03-10] MEDS: ALLOPURINOL 100 MG TABLET PO SCH (08:23)
[2021-03-10] MEDS: FLUDROCORTISONE 0.1 MG TABLET PO SCH (08:32)
[2021-03-10] MEDS ORDERED: WARFARIN 7.5 MG TABLET PO ONE (11:00)
== END 2021-03-10 17:15 | disposition home health service (06) ==
LOC: ED 16:36 → MEDSUR 22:08
PROVIDERS: ADMIT Internal Medicine; ATTEND Internal Medicine